=== PATIENT | male | born 1995 | race Caucasian/White ===

== ENCOUNTER 2021-07-21 08:37 | Inpatient (IN) | payer MEDICAID ==
[~2021-07-21] VITALS: Ht 190.5 cm; Wt 142.9 kg
[~2021-07-21 08:37] MED LIST: APIX5TAB3 PO; ATOR40TA PO; CLON0.1T2 PO; LOSA50TA64 PO; METF500T PO; METO-395 PO
[2021-07-21 09:45] LABS: BASOPHILS # (AUTO) 0.1 X10'3 (0-0.2); EOSINOPHILS # (AUTO) 0.2 X10'3 (0-0.9); EOSINOPHILS % (AUTO) 1.7 % (0-6); HEMATOCRIT 40.6 % (42.0-52.0); HEMOGLOBIN 14.2 g/dl (14.0-17.9); LYMPHOCYTES # (AUTO) 1.8 X10'3 (1.1-4.8); LYMPHOCYTES % (AUTO) 16.8 % (21-51); MEAN CORPUSCULAR HEMOGLOBIN 28.2 PG (27.0-31.0); MEAN CORPUSCULAR HGB CONC 34.9 g/dL (33.0-36.5); MEAN CORPUSCULAR VOLUME 80.9 FL (78-98); MEAN PLATELET VOLUME 8.2 FL (7.4-10.4); MONOCYTES % (AUTO) 9.2 % (2-12); NEUTROPHILS # (AUTO) 7.8 X10'3 (1.8-7.7); NEUTROPHILS % (AUTO) 71.3 % (42-75); PLATELET COUNT 368 X10'3 (140-440); RED BLOOD COUNT 5.02 X10'6 (4.70-6.10); RED CELL DISTRIBUTION WIDTH 16.2 % (11.5-14.5)
[2021-07-21 10:02] LABS: ALANINE AMINOTRANSFERASE 64 U/L (12-78); ALBUMIN 3.6 G/DL (3.4-5.0); ALBUMIN/GLOBULIN RATIO 0.8 (1.1-1.5); ALKALINE PHOSPHATASE 83 IU/L (46-116); ANION GAP 7 (8-16); ASPARTATE AMINO TRANSFERASE 28 U/L (10-37); BILIRUBIN,TOTAL 0.2 MG/DL (0.1-1.0); BLOOD UREA NITROGEN 13 MG/DL (7-18); BUN/CREATININE RATIO 11.9 (5.4-32.0); CHLORIDE 108 MMOL/L (99-107); CREATININE 1.09 MG/DL (0.60-1.10); GLUCOSE 169 MG/DL (70-104); POTASSIUM 4.2 MMOL/L (3.5-5.1); SODIUM 142 MMOL/L (135-145); TOTAL CARBON DIOXIDE 26.7 MMOL/L (24-32); TOTAL PROTEIN 8.4 G/DL (6.4-8.2); eGFR 81 ML/MIN
[2021-07-21] MEDS ORDERED: normal saline 1000ml 1,000 ML IV ONE (10:55)
[2021-07-21] MEDS ORDERED: LORazepam 2 mg/ml vial IM ONE (10:55)
[2021-07-21] MEDS ORDERED: diltiazem 5mg/ml 5ml inj. IV ONE ×2 (10:55→12:15)
[2021-07-21] MEDS ORDERED: NO HOME MEDS (11:00)
[2021-07-21 11:08] LABS: MAGNESIUM 2.1 MG/DL (1.5-2.4)
[2021-07-21] MEDS ORDERED: LORazepam 2 mg/ml vial IV ONE (11:20)
[2021-07-21] MEDS: diltiazem-NS 100mg/100ml 100 ML IV SCH (12:40)
[2021-07-21] MEDS ORDERED: potassium Cl 20 mEq SR tablet PO PRN ×2 (13:05)
[2021-07-21] MEDS ORDERED: magnesium 2GM in 50ml NS 50 ML IV PRN (13:05)
[2021-07-21] MEDS ORDERED: metoprolol tartrate 50mg tablet PO ONE (13:05)
[2021-07-21] MEDS ORDERED: potassium Cl 40MEQ/1/2NS 520ml 520 ML IV PRN ×2 (13:05)
[2021-07-21] MEDS ORDERED: ondansetron/PF 4mg/2ml inj IV PRN (13:05)
[2021-07-21] MEDS ORDERED: acetaminophen 325mg tablet PO PRN (13:05)
[2021-07-21] MEDS ORDERED: mag hydrox/Alum hydrox/simeth 30ml oral suspension PO PRN (13:05)
[2021-07-21] MEDS ORDERED: magnesium hydroxide 30ml (MOM) UD suspension PO PRN (13:05)
[2021-07-21] MEDS ORDERED: magnesium 4gm in 100ml NS 100 ML IV PRN (13:05)
--- NOTE | 2021-07-21 13:05 | NUR ---
Pt stated that he did not want to stay in the hospital. Dr. Peña was notified.
[2021-07-21] MEDS ORDERED: dextrose ORAL solution 15 GM/59 ML bottle PO PRN ×2 (13:30)
[2021-07-21] MEDS ORDERED: insulin Lispro (HumaLOG) vial - multi-dose SQ SCH (13:30)
[2021-07-21] MEDS ORDERED: dextrose 50%-water 50ml dispensing syringe IV PRN ×2 (13:30)
[2021-07-21] MEDS ORDERED: MESSAGE TO PHARMACY PO ONE (13:30)
[2021-07-21] MEDS ORDERED: glucagon, human recombinant 1mg kit SUBCUT PRN (13:30)
[2021-07-21 13:32] LABS: URINE AMPHETAMINE SCREEN NEGATIVE (Neg); URINE BARBITUATE SCREEN NEGATIVE (Neg); URINE BENZODIAZEPINES SCREEN NEGATIVE (Neg); URINE CANNABINOID SCREEN POSITIVE (Neg); URINE COCAINE SCREEN NEGATIVE (Neg); URINE METHADONE SCREEN NEGATIVE (Neg); URINE OPIATE SCREEN NEGATIVE (Neg); URINE PHENCYCLIDINE SCREEN NEGATIVE (Neg)
--- NOTE | 2021-07-21 13:55 | NUR ---
Dr. Peña at the bedside.
[2021-07-21 15:09] LABS: HEMOGLOBIN A1C 6.1 % (4.5-6.2)
[2021-07-21] MEDS: docusate sod 100mg capsule PO SCH (20:00)
[2021-07-21] MEDS ORDERED: insulin glargine (Lantus) pen - multi-dose SQ SCH (21:00)
[2021-07-21] MEDS: K and/or MAG REPLACEMENT MC SCH (21:09)
--- NOTE | 2021-07-21 21:27 | NUR ---
Patient blood sugar was 108 upon check at this time.
[2021-07-21] MEDS: apixaban 5mg tablet PO SCH (21:30)
--- NOTE | 2021-07-21 21:45 | NUR ---
Patient stated did not want scheduled lantus shot. Patient's blood sugar was in desired range (108).
[2021-07-21] MEDS: cloNIDine 0.1 mg tablet PO PRN (21:57)
[2021-07-21] MEDS ORDERED: hyDRALAzine 10mg tablet PO SCH (22:00)
--- NOTE | 2021-07-21 23:00 | NUR ---
Upon assessment patient's blood pressure was found to be 160/118. Patient denied currently experiencing any symptoms of high blood pressure. On-call doctor was notified. Patient given PRN Clonidine per order.
[2021-07-22 03:14] LABS: BASOPHILS # (AUTO) 0.1 X10'3 (0-0.2); BASOPHILS % (AUTO) 0.7 % (0-1); EOSINOPHILS # (AUTO) 0.2 X10'3 (0-0.9); EOSINOPHILS % (AUTO) 1.8 % (0-6); HEMATOCRIT 37.8 % (42.0-52.0); HEMOGLOBIN 12.9 g/dl (14.0-17.9); LYMPHOCYTES # (AUTO) 2.5 X10'3 (1.1-4.8); LYMPHOCYTES % (AUTO) 19.7 % (21-51); MEAN CORPUSCULAR HEMOGLOBIN 27.4 PG (27.0-31.0); MEAN CORPUSCULAR HGB CONC 34.1 g/dL (33.0-36.5); MEAN CORPUSCULAR VOLUME 80.4 FL (78-98); MEAN PLATELET VOLUME 8.5 FL (7.4-10.4); MONOCYTES # (AUTO) 0.9 X10'3 (0-0.9); MONOCYTES % (AUTO) 7.3 % (2-12); NEUTROPHILS # (AUTO) 8.9 X10'3 (1.8-7.7); NEUTROPHILS % (AUTO) 70.5 % (42-75); PLATELET COUNT 337 X10'3 (140-440); WHITE BLOOD COUNT 12.6 X10'3 (4.5-11.0)
[2021-07-22 03:30] LABS: ALANINE AMINOTRANSFERASE 59 U/L (12-78); ALBUMIN 3.4 G/DL (3.4-5.0); ALBUMIN/GLOBULIN RATIO 0.8 (1.1-1.5); ALKALINE PHOSPHATASE 69 IU/L (46-116); ANION GAP 9 (8-16); ASPARTATE AMINO TRANSFERASE 22 U/L (10-37); BILIRUBIN,TOTAL 0.4 MG/DL (0.1-1.0); BLOOD UREA NITROGEN 11 MG/DL (7-18); BUN/CREATININE RATIO 10.6 (5.4-32.0); CALCIUM 8.7 MG/DL (8.5-10.1); CHLORIDE 106 MMOL/L (99-107); CREATININE 1.04 MG/DL (0.60-1.10); GLUCOSE 110 MG/DL (70-104); MAGNESIUM 1.9 MG/DL (1.5-2.4); POTASSIUM 3.6 MMOL/L (3.5-5.1); SODIUM 142 MMOL/L (135-145); TOTAL CARBON DIOXIDE 27.1 MMOL/L (24-32); TOTAL PROTEIN 7.7 G/DL (6.4-8.2); eGFR 86 ML/MIN
[2021-07-22] MEDS: diltiazem-NS 100mg/100ml 100 ML IV SCH (04:18)
[2021-07-22] MEDS: K and/or MAG REPLACEMENT MC SCH (07:17)
[2021-07-22] MEDS: apixaban 5mg tablet PO SCH (07:28)
[2021-07-22] MEDS: docusate sod 100mg capsule PO SCH (07:32)
[2021-07-22] MEDS ORDERED: atorvastatin 20mg tablet PO SCH (08:00)
[2021-07-22] MEDS ORDERED: metoprolol succinate 25mg (24-HOUR) SR. Tablet PO SCH (08:00)
[2021-07-22] MEDS ORDERED: losartan 50mg tablet PO SCH (08:00)
--- NOTE | 2021-07-22 08:12 | NUR ---
BS was 123 at this time before being served breakfast. Patient made it clear he did not want any insulin.
--- NOTE | 2021-07-22 08:23 | NUR ---
Given order to stop patient's cardizem IV in one hour per Doctor Casey.
[2021-07-22] MEDS ORDERED: metoprolol succinate 25mg (24-HOUR) SR. Tablet PO ONE (08:25)
--- NOTE | 2021-07-22 08:52 | NUR ---
Per Dr. Toño norwood'd to give extra Metoprolol 25 XL that was ordered.
--- NOTE | 2021-07-22 09:33 | NUR ---
Cardizem drip stopped per Doctor Roback order.
--- NOTE | 2021-07-22 11:28 | NUR ---
Patient sleeping supine. HR 101,ST. No distress observed. Continue to monitor.
--- NOTE | 2021-07-22 12:58 | NUR ---
Patient awake and alert with family at bedside. Patient denies chest pain and denies palpitations. Patient states he wants to go home. Patient talking and BP went up to 160 for/120, HR 114. RN giving patient oral medication due at 1400 and his PRN Catapres dose. RN paged Dr Davis who wanted RN to call him back in 1 hour to see how the medication worked. RN advised patient and family. Patient verbalized understanding. Continue to monitor.
[2021-07-22] MEDS: cloNIDine 0.1 mg tablet PO PRN (13:07)
[2021-07-22] MEDS ORDERED: metoprolol tartrate 50mg tablet PO ONE (14:00)
[2021-07-22] MEDS ORDERED: METO100T7 PO (14:19)
[2021-07-22] MEDS ORDERED: ATOR20TA66 PO (14:19)
[2021-07-22] MEDS ORDERED: APIX5TAB3 PO (14:19)
[2021-07-22] MEDS ORDERED: METF-1203 PO (14:23)
[2021-07-22] MEDS ORDERED: LOSA50TA64 PO (14:25)
[2021-07-22 14:59] VITALS: BP 129/112
[2021-07-23] MEDS ORDERED: metoprolol succinate 25mg (24-HOUR) SR. Tablet PO SCH (08:00)
== END 2021-07-22 18:05 | disposition home or self-care (01) | DRG 201 ==
LOC: ER 08:37 → ED HOLD 13:17 → EDBEDREQ 07-22 13:36 → CANBEDREQ 07-22 14:31
PROVIDERS: ADMIT Family Medicine; ATTEND Family Medicine
DX: I48.91 Unspecified atrial fibrillation (principal); D72.823 Leukemoid reaction; R73.03 Prediabetes; E78.5 Hyperlipidemia, unspecified; F17.210 Nicotine dependence, cigarettes, uncomplicated; Z20.822 Contact with and (suspected) exposure to COVID-19; I10 Essential (primary) hypertension; Z79.899 Other long term (current) drug therapy; Z83.438 Family history of other disorder of lipoprotein metabolism and other lipidemia; Z71.6 Tobacco abuse counseling
CPT/HCPCS: 36415; 71045; 71046; 80053; 80305; 82948; 83036; 83735; 83880; 84484; 85025; 87635; 93005; 96361; 96365; 96375; 96376; 99285; G0378; J1815; J2060; J3490; J7030

== ENCOUNTER 2022-09-17 00:19 | Inpatient (IN) | payer MEDICAID ==
[~2022-09-17] VITALS: Ht 190.5 cm; Wt 181.8 kg
[~2022-09-17 00:19] MED LIST changes: +ATOR20TA66 PO; -ATOR40TA PO; -CLON0.1T2 PO; +METF-1203 PO; -METF500T PO; -METO-395 PO; +METO100T7 PO
[2022-09-17 01:54] LABS: BASOPHILS # (AUTO) 0.1 X10'3 (0-0.2); BASOPHILS % (AUTO) 0.3 % (0-1); EOSINOPHILS % (AUTO) 0 % (0-6); HEMATOCRIT 45.1 % (42.0-52.0); HEMOGLOBIN 14.7 g/dl (14.0-17.9); LYMPHOCYTES # (AUTO) 1.7 X10'3 (1.1-4.8); LYMPHOCYTES % (AUTO) 7.4 % (21-51); MEAN CORPUSCULAR HEMOGLOBIN 27.9 PG (27.0-31.0); MEAN CORPUSCULAR HGB CONC 32.6 g/dL (33.0-36.5); MEAN CORPUSCULAR VOLUME 85.5 FL (78-98); MEAN PLATELET VOLUME 10.4 FL (7.4-10.4); MONOCYTES # (AUTO) 1.7 X10'3 (0-0.9); MONOCYTES % (AUTO) 7.1 % (2-12); NEUTROPHILS # (AUTO) 19.7 X10'3 (1.8-7.7); NEUTROPHILS % (AUTO) 85.2 % (42-75); PLATELET COUNT 441 X10'3 (140-440); RED BLOOD COUNT 5.27 X10'6 (4.70-6.10); RED CELL DISTRIBUTION WIDTH 16.7 % (11.5-14.5); WHITE BLOOD COUNT 23.1 X10'3 (4.5-11.0)
[2022-09-17 02:16] LABS: ALANINE AMINOTRANSFERASE 43 U/L (12-78); ALBUMIN 4.4 G/DL (3.4-5.0); ALBUMIN/GLOBULIN RATIO 0.9 (1.1-1.5); ALKALINE PHOSPHATASE 128 IU/L (46-116); ANION GAP 27 (8-16); ASPARTATE AMINO TRANSFERASE 9 U/L (10-37); BILIRUBIN,TOTAL 0.6 MG/DL (0.1-1.0); BLOOD UREA NITROGEN 24 MG/DL (7-18); CALCIUM 10.1 MG/DL (8.5-10.1); CHLORIDE 89 MMOL/L (99-107); POTASSIUM 5.1 MMOL/L (3.5-5.1); SODIUM 130 MMOL/L (135-145); TOTAL PROTEIN 9.5 G/DL (6.4-8.2); eGFR 40 ML/MIN
[2022-09-17 02:23] LABS: GLUCOSE 742 MG/DL (70-104); TOTAL CARBON DIOXIDE 14.4 MMOL/L (24-32)
[2022-09-17] MEDS ORDERED: normal saline 1000ML IV soln IVB ONE (03:20)
[2022-09-17] MEDS ORDERED: pantoprazole 40 MG vial IV ONE (03:35)
[2022-09-17] MEDS ORDERED: ondansetron/PF 4mg/2ml inj IV ONE (03:35)
[2022-09-17] MEDS ORDERED: proCHLORperazine 10 MG/2 ml inj IV ONE (03:40)
[2022-09-17] MEDS ORDERED: pantoprazole 40MG/NS 100ML BAG 100 ML IV ONE (03:40)
[2022-09-17 03:41] LABS: ABG BASE EXCESS -16.8 mmol/L (-2.0-2.0); ABG HCO3 8.4 mmol/L (22.0-26.0); ABG OXYGEN SATURATION 97.4 % (94-97); ABG PCO2 (T) 20.1 mmHg (35.0-48.0); ABG PO2 (T) 103.8 mmHg (75.0-100.0); ALLEN'S TEST POSITIVE; FMetHb 0.3 % (0.0-1.5); FO2Hb 96.1 % (94-97); TOTAL HEMOGLOBIN 14.9 G/dl (14.0-17.9)
[2022-09-17] MEDS: Insulin Reg/NS 100units/100mL 100 ML IV PRN ×2 (04:18→18:09)
[2022-09-17] MEDS ORDERED: sodium phosphate inj. 15 MMOL in dextrose 5%-water 250 ML IV PRN ×2 (04:25→16:05)
[2022-09-17] MEDS ORDERED: potassium CL 20mEq in D5-1/2NS 1,000 ML IV PRN ×2 (04:25→16:05)
[2022-09-17] MEDS ORDERED: insulin regular, human U-100 3ml vial - multi-dose IV PRN ×2 (04:25→16:05)
[2022-09-17] MEDS ORDERED: sodium bicarbonate (8.4%) inj. 50 MEQ in dextrose 5% water 500ml 250 ML IV PRN ×2 (04:25→16:05)
[2022-09-17] MEDS ORDERED: Neutra Phos packet PO PRN ×2 (04:25→16:05)
[2022-09-17] MEDS ORDERED: sodium phosphate inj. 30 MMOL in dextrose 5%-water 250 ML IV PRN ×2 (04:25→16:05)
[2022-09-17] MEDS ORDERED: sodium bicarbonate (8.4%) inj. 100 MEQ in dextrose 5% water 500ml 500 ML IV PRN ×2 (04:25→16:05)
[2022-09-17] MEDS ORDERED: Insulin Reg/NS 100units/100mL 100 ML IV SCH ×2 (04:25→16:05)
[2022-09-17] MEDS ORDERED: mag hydrox/Alum hydrox/simeth 30ml oral suspension PO PRN (04:30)
[2022-09-17] MEDS ORDERED: ondansetron/PF 4mg/2ml inj IV PRN (04:30)
[2022-09-17] MEDS ORDERED: magnesium hydroxide 30ml (MOM) UD suspension PO PRN (04:30)
[2022-09-17] MEDS ORDERED: magnesium Cl slow-release 64mg tablet PO PRN (04:30)
[2022-09-17] MEDS ORDERED: potassium Cl 40MEQ/1/2NS 520ml 520 ML IV PRN ×3 (04:30→16:05)
[2022-09-17] MEDS ORDERED: potassium Cl 20 mEq SR tablet PO PRN ×4 (04:30→16:05)
[2022-09-17] MEDS ORDERED: acetaminophen 325mg tablet PO PRN (04:30)
[2022-09-17] MEDS ORDERED: magnesium 4gm in 100ml NS 100 ML IV PRN (04:30)
[2022-09-17] MEDS: normal saline 1000ml 1,000 ML IV SCH ×9 (04:47→20:25)
[2022-09-17 06:11] LABS: ALBUMIN 3.8 G/DL (3.4-5.0); ANION GAP 22 (8-16); BLOOD UREA NITROGEN 23 MG/DL (7-18); CALCIUM 8.4 MG/DL (8.5-10.1); CHLORIDE 99 MMOL/L (99-107); CREATININE 1.91 MG/DL (0.60-1.10); PHOSPHORUS 3.1 MG/DL (2.3-4.5); POTASSIUM 4.1 MMOL/L (3.5-5.1); SODIUM 135 MMOL/L (135-145); eGFR 42 ML/MIN
[2022-09-17 06:14] LABS: GLUCOSE 491 MG/DL (70-104)
--- NOTE | 2022-09-17 06:45 | NUR ---
report from bethany sommer for continuation of care. pt is sleeping in position of comfort. resp even unlabored. skinw/d/i pink. insulin drip infusing at 5 units/hr. iv site intact. dr stearns notified of critical lab values ph and co2 results given to him by another rn.
[2022-09-17] MEDS: docusate sod 100mg capsule PO SCH ×2 (08:00→20:00)
[2022-09-17] MEDS ORDERED: atorvastatin 20mg tablet PO SCH ×2 (08:00→21:00)
[2022-09-17] MEDS ORDERED: losartan 50mg tablet PO SCH (08:00)
[2022-09-17] MEDS: metoprolol succinate 25mg (24-HOUR) SR. Tablet PO SCH (08:19)
[2022-09-17] MEDS: apixaban 5mg tablet PO SCH ×2 (08:20→20:06)
[2022-09-17 09:01] LABS: HEMOGLOBIN A1C 11.5 % (4.5-6.2)
[2022-09-17 10:00] LABS: ALBUMIN 3.8 G/DL (3.4-5.0); ANION GAP 20 (8-16); BLOOD UREA NITROGEN 23 MG/DL (7-18); CALCIUM 8.4 MG/DL (8.5-10.1); CHLORIDE 101 MMOL/L (99-107); CREATININE 2.09 MG/DL (0.60-1.10); GLUCOSE 420 MG/DL (70-104); SODIUM 136 MMOL/L (135-145); eGFR 38 ML/MIN
[2022-09-17 10:06] LABS: TOTAL CARBON DIOXIDE 14.8 MMOL/L (24-32)
[2022-09-17] MEDS ORDERED: LISI10TA27 PO (13:21)
[2022-09-17] MEDS ORDERED: METF-436 PO (13:21)
[2022-09-17] MEDS ORDERED: METO-411 PO (13:21)
[2022-09-17] MEDS ORDERED: LOSA50TA64 PO (13:24)
[2022-09-17] MEDS ORDERED: ATOR20TA66 PO (13:24)
[2022-09-17] MEDS ORDERED: APIX5TAB3 PO (13:24)
--- NOTE | 2022-09-17 15:06 | NUR ---
PT SLEEPING IN POSITON OF COMFORT WITH NO ACUTE SIGNS OF DISCOMFORT. RESP EVEN UNLABORED.
[2022-09-17 16:30] LABS: ALBUMIN 3.3 G/DL (3.4-5.0); ANION GAP 10 (8-16); BLOOD UREA NITROGEN 18 MG/DL (7-18); BUN/CREATININE RATIO 12.1 (5.4-32.0); CALCIUM 8.4 MG/DL (8.5-10.1); CHLORIDE 107 MMOL/L (99-107); CREATININE 1.49 MG/DL (0.60-1.10); GLUCOSE 282 MG/DL (70-104); POTASSIUM 4.2 MMOL/L (3.5-5.1); SODIUM 138 MMOL/L (135-145); eGFR 56 ML/MIN
--- NOTE | 2022-09-17 19:29 | NUR ---
spoke with dr. stearns. pt. will be placed on hyperglycemia protocol and will have heart healthy diet.
[2022-09-17] MEDS ORDERED: DEXTROSE 15 GM of carb/4 tabs (each vial/BOTTLE has 4 tablets) PO PRN ×2 (19:35)
[2022-09-17] MEDS ORDERED: glucagon, human recombinant 1mg kit SUBCUT PRN (19:35)
[2022-09-17] MEDS ORDERED: MESSAGE TO PHARMACY PO ONE (19:35)
[2022-09-17] MEDS ORDERED: dextrose 50%-water 50ml dispensing syringe IV PRN ×2 (19:35)
[2022-09-17] MEDS: K and/or MAG REPLACEMENT MC SCH (20:00)
[2022-09-17] MEDS ORDERED: apixaban 5mg tablet PO SCH (20:00)
--- NOTE | 2022-09-17 20:01 | NUR ---
pt. tolerated eating with no issues.
[2022-09-17] MEDS ORDERED: insulin glargine (Lantus) pen - multi-dose SQ SCH (21:00)
[2022-09-17] MEDS: insulin Lispro (HumaLOG) vial - multi-dose SQ SCH (21:08)
[2022-09-17 21:42] LABS: ANION GAP 11 (8-16); BLOOD UREA NITROGEN 15 MG/DL (7-18); BUN/CREATININE RATIO 10.8 (5.4-32.0); CHLORIDE 108 MMOL/L (99-107); CREATININE 1.39 MG/DL (0.60-1.10); GLUCOSE 308 MG/DL (70-104); PHOSPHORUS 2.3 MG/DL (2.3-4.5); POTASSIUM 3.9 MMOL/L (3.5-5.1); SODIUM 138 MMOL/L (135-145); eGFR 61 ML/MIN
[2022-09-17 22:14] LABS: ABG BASE EXCESS -10.8 mmol/L (-2.0-2.0); ABG HCO3 13.5 mmol/L (22.0-26.0); ABG OXYGEN SATURATION 95.9 % (94-97); ABG PCO2 (T) 26.1 mmHg (35.0-48.0); ABG PO2 (T) 83.3 mmHg (75.0-100.0); FCOHb 0.6 % (0.0-3.9); FMetHb 0.2 % (0.0-1.5); FO2Hb 95.1 % (94-97); TOTAL HEMOGLOBIN 12.8 G/dl (14.0-17.9)
[2022-09-17 22:35] VITALS: BP 137/71
[2022-09-18] MEDS: normal saline 1000ml 1,000 ML IV SCH ×7 (00:05→08:59)
[2022-09-18 02:00] VITALS: BP 137/77
[2022-09-18 07:00] VITALS: BP 153/78
[2022-09-18] MEDS: K and/or MAG REPLACEMENT MC SCH (08:00)
[2022-09-18] MEDS ORDERED: lisinopril 10 MG tablet PO SCH (08:00)
[2022-09-18 08:04] LABS: ALBUMIN 3.1 G/DL (3.4-5.0); ANION GAP 14 (8-16); BLOOD UREA NITROGEN 12 MG/DL (7-18); CALCIUM 8.2 MG/DL (8.5-10.1); CHLORIDE 107 MMOL/L (99-107); CHOL/HDL RATIO 3.3 (0.00-4.99); CHOLESTEROL 105 MG/DL (0-200); CREATININE 1.33 MG/DL (0.60-1.10); GLUCOSE 280 MG/DL (70-104); HDL CHOLESTEROL 32 MG/DL (35-60); LDL CHOLESTEROL 49 MG/DL (50-100); MAGNESIUM 2.1 MG/DL (1.5-2.4); PHOSPHORUS 2.3 MG/DL (2.3-4.5); POTASSIUM 3.8 MMOL/L (3.5-5.1); SODIUM 138 MMOL/L (135-145); TOTAL CARBON DIOXIDE 17.5 MMOL/L (24-32); TRIGLYCERIDES 159 MG/DL (20-135); eGFR 64 ML/MIN
[2022-09-18] MEDS ORDERED: LANTUS SQ (08:08)
[2022-09-18] MEDS: metoprolol succinate 25mg (24-HOUR) SR. Tablet PO SCH (08:40)
[2022-09-18] MEDS: apixaban 5mg tablet PO SCH (08:40)
[2022-09-18] MEDS: docusate sod 100mg capsule PO SCH (08:40)
--- NOTE | 2022-09-18 08:53 | NUR ---
LN received report from [facility] nurse.
--- NOTE | 2022-09-18 08:54 | NUR ---
LN obtained 7am bs - 283, meal slip indicates heart healthy diet, cc added, pt had consumed 131gm of carbs at breakfast, contributing to high bs. treated with insulin.
[2022-09-18] MEDS: insulin Lispro (HumaLOG) vial - multi-dose SQ SCH (09:20)
--- NOTE | 2022-09-18 10:58 | NUR ---
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 page sent to rubber extrusion machine operator.
[2022-09-18 11:00] VITALS: BP 149/87
--- NOTE | 2022-09-18 11:49 | NUR ---
DM consult: Pt with A1c 11.5% seen at bedside for written and verbal DM education. Pt states he was previously told he had prediabetes however states no intervention was implemented. Per EMR pt with A1c 7.2% 02/17/21 and 6.1% 07/20/21 and with Metformin on home med list. Pt reports being started on Metformin about a year ago, pt unaware that Metformin is often prescribed for diabetes management. Pt states he does not have a glucometer to check his blood sugars, RD encouraged pt to f/u with physician regarding further DM management and informed pt of OTC glucometer. All of patient's questions were answered at this time. RD contact information provided and pt encouraged to reach out if needed. Pt endorses a good appetite though states he does not like the food provided however denies food preferences at this time. Pt denies food allergies or difficulty chewing/swallowing. Will continue to follow. Addendum: 09/18/22 at [address] Amended: Links added.
--- NOTE | 2022-09-18 14:34 | NUR ---
Pt stable to d/c per MD. Repack Room Worker provided education r/t nutrition with DM. PIV d/c'd, right and left, cannulas intact. Pt took all belongings and signed paperwork. Pt expressed understanding r/t diabetic testing and medications. Pt transferred off floor via w/c to main entrance and safely transferred to family vehicle at approx 1422.
--- NOTE | 2022-09-18 17:42 | NUR ---
GHULAM Medication Administration: For this medication-pass time frame, all medication were reviewed, dispensed, administered and documented per hospital policy by GHULAM PORTILLO.
--- NOTE | 2022-09-18 17:42 | NUR ---
BUILDING CONSTRUCTION INSPECTOR documentation: I have reviewed and agree with all interventions, assessments performed and documented by LINDSEY, BUILDING CONSTRUCTION INSPECTOR.
== END 2022-09-18 14:17 | disposition home health service (06) | DRG 420 ==
LOC: ER 00:20 → ED HOLD 04:32 → EDBEDREQ 19:29 → PCU 3S 22:35
PROVIDERS: ADMIT Family Medicine; ATTEND Internal Medicine
DX: E11.10 Type 2 diabetes mellitus with ketoacidosis without coma (principal); N17.9 Acute kidney failure, unspecified; Z68.43 Body mass index [BMI] 50.0-59.9, adult; E66.01 Morbid (severe) obesity due to excess calories; Z20.822 Contact with and (suspected) exposure to COVID-19; E78.5 Hyperlipidemia, unspecified; I10 Essential (primary) hypertension; D75.839 Thrombocytosis, unspecified; D72.829 Elevated white blood cell count, unspecified; I48.0 Paroxysmal atrial fibrillation; F17.200 Nicotine dependence, unspecified, uncomplicated; Z79.01 Long term (current) use of anticoagulants; Z79.4 Long term (current) use of insulin; Z79.899 Other long term (current) drug therapy; Z83.438 Family history of other disorder of lipoprotein metabolism and other lipidemia; Z71.6 Tobacco abuse counseling; Z71.3 Dietary counseling and surveillance
CPT/HCPCS: 36415; 36600; 71045; 80048; 80053; 80061; 82009; 82803; 82948; 83036; 83735; 83880; 84100; 84484; 85018; 85025; 87635; 99285; C9113; G0378; J0780; J1815; J7030